=== PATIENT | male | born 1930 | race Native Hawaiian/Other Pacific Islander ===

== ENCOUNTER 2017-05-23 08:31 | Outpatient (CLI) | payer OTHER ==
[~2017-05-23 08:31] MED LIST: AMLO5TAB PO; COZAAR100 MG PO; EXFORGE1 TAB PO; MEDROL DOSEPAK4 MG OR; MELO-13 PO
[2017-05-23 08:52] LABS: PLATELET COUNT 275 K/uL (142-355)
[2017-05-23 09:18] LABS: POTASSIUM 3.9 mmol/L (3.6-5.2); SODIUM 136 mmol/L (136-145)
== END 2017-05-23 19:24 | disposition home or self-care (01) ==
LOC: LABW 08:31
PROVIDERS: Internal Medicine
DX: I10 Essential (primary) hypertension (principal)
CPT/HCPCS: 36415; 80053; 80061; 81000; 84443; 85027

== ENCOUNTER 2018-07-11 08:36 | Outpatient (CLI) | payer OTHER ==
[2018-07-11 08:55] LABS: PLATELET COUNT 273 K/uL (142-355)
[2018-07-11 09:28] LABS: POTASSIUM 4.1 mmol/L (3.6-5.2)
== END 2018-07-11 22:20 | disposition home or self-care (01) ==
LOC: LABW 08:36
PROVIDERS: Internal Medicine
DX: I10 Essential (primary) hypertension (principal)
CPT/HCPCS: 36415; 80053; 80061; 81000; 84443; 85027

== ENCOUNTER 2018-11-27 11:13 | Emergency (ER) | payer OTHER ==
[~2018-11-27] VITALS: Ht 182.9 cm; Wt 83.9 kg
[2018-11-27 12:51] LABS: PLATELET COUNT 384 K/uL (142-355)
[2018-11-27 17:25] VITALS: BP 167/70; TEMP 98.2
== END 2018-11-27 17:32 | disposition home or self-care (01) ==
LOC: ED 11:13
PROVIDERS: Family Medicine
DX: K57.90 Diverticulosis of intestine, part unspecified, without perforation or abscess without bleeding (principal)
CPT/HCPCS: 36415; 80053; 81000; 82272; 85027; 96374; 99284; J3490; Q9963

== ENCOUNTER 2018-11-29 15:32 | Outpatient (CLI) | payer OTHER ==
[2018-11-29 15:45] LABS: PLATELET COUNT 389 K/uL (142-355)
[2018-11-29 15:56] LABS: POTASSIUM 4.4 mmol/L (3.6-5.2)
== END 2018-11-29 23:06 | disposition home or self-care (01) ==
LOC: LABW 15:32
PROVIDERS: Internal Medicine
DX: K57.91 Diverticulosis of intestine, part unspecified, without perforation or abscess with bleeding (principal)
CPT/HCPCS: 36415; 80053; 85027

== ENCOUNTER 2018-12-05 09:01 | Outpatient (CLI) | payer OTHER ==
[2018-12-05 09:12] LABS: PLATELET COUNT 368 K/uL (142-355)
== END 2018-12-05 19:44 | disposition home or self-care (01) ==
LOC: LABW 09:01
PROVIDERS: Internal Medicine
DX: D64.9 Anemia, unspecified (principal)
CPT/HCPCS: 36415; 85027

== ENCOUNTER 2018-12-12 08:59 | Outpatient (CLI) | payer OTHER ==
[2018-12-12 09:45] LABS: PLATELET COUNT 277 K/uL (142-355)
== END 2018-12-12 19:12 | disposition home or self-care (01) ==
LOC: LABW 08:59
PROVIDERS: Internal Medicine
DX: D64.9 Anemia, unspecified (principal)
CPT/HCPCS: 36415; 85027

== ENCOUNTER 2019-04-02 08:34 | Outpatient (CLI) | payer OTHER ==
[2019-04-02 08:53] LABS: PLATELET COUNT 271 K/uL (142-355)
[2019-04-02 10:15] LABS: POTASSIUM 3.7 mmol/L (3.6-5.2)
== END 2019-04-02 19:10 | disposition home or self-care (01) ==
LOC: LABW 08:34
PROVIDERS: Internal Medicine
DX: I10 Essential (primary) hypertension (principal); D64.89 Other specified anemias
CPT/HCPCS: 36415; 80053; 80061; 81000; 84443; 85027

== ENCOUNTER 2019-10-04 10:00 | Outpatient (CLI) | payer OTHER ==
[2019-10-04 10:35] LABS: PLATELET COUNT 262 K/uL (142-355)
[2019-10-04 11:09] LABS: POTASSIUM 3.9 mmol/L (3.6-5.2)
== END 2019-10-04 19:51 | disposition home or self-care (01) ==
LOC: LABW 10:00
PROVIDERS: Internal Medicine
DX: I10 Essential (primary) hypertension (principal); D64.9 Anemia, unspecified; E53.8 Deficiency of other specified B group vitamins
CPT/HCPCS: 36415; 80053; 82272; 82607; 82728; 82747; 83540; 83550; 84439; 84443; 85027

== ENCOUNTER 2021-02-25 08:32 | Outpatient (CLI) | payer OTHER ==
[2021-02-25 08:53] LABS: PLATELET COUNT 269 K/uL (142-355)
[2021-02-25 09:01] LABS: POTASSIUM 3.8 mmol/L (3.6-5.2)
== END 2021-02-25 21:48 | disposition home or self-care (01) ==
LOC: LABW 08:32
PROVIDERS: ATTEND Internal Medicine
DX: I10 Essential (primary) hypertension (principal)
CPT/HCPCS: 36415; 80053; 80061; 81000; 84439; 84443; 85027

== ENCOUNTER 2021-07-07 17:27 | Outpatient (CLI) | payer OTHER ==
[2021-07-07 19:08] LABS: POTASSIUM 4.1 mmol/L (3.6-5.2)
[2021-07-07 19:38] LABS: PLATELET COUNT 295 K/uL (142-355)
== END 2021-07-07 20:46 | disposition home or self-care (01) ==
LOC: LAB 17:27
PROVIDERS: ATTEND Internal Medicine
DX: I10 Essential (primary) hypertension (principal)
CPT/HCPCS: 80053; 80061; 81000; 84439; 84443; 85007; 85027